=== PATIENT | female | born 2000 | race Two or more races ===

== ENCOUNTER 2019-05-23 06:51 | Inpatient (IN) | payer BC ==
[~2019-05-23] VITALS: Ht 157.5 cm; Wt 58.1 kg
[~2019-05-23 06:51] MED LIST: METO10TA PO; PANT40TA77 PO; PROC10VI PO
[2019-05-23 09:00] VITALS: BP 115/64
[2019-05-23] MEDS ORDERED: ACETAMINOPHEN 325 MG TABLET. PO PRN ×2 (09:15)
[2019-05-23] MEDS ORDERED: FAMOTIDINE 20 MG/2 ML VIAL IVP PRN (09:30)
[2019-05-23] MEDS: ONDANSETRON PF 4 MG/2 ML VIAL. IVP PRN ×3 (09:40→19:09)
[2019-05-23] MEDS: IV DEXTROSE 5%-LACT RINGERS 1,000 ML IV SCH ×2 (09:40→18:32)
[2019-05-23] MEDS: diphenhydrAMINE HCL 25 MG CAPSULE PO PRN (15:17)
[2019-05-23 18:25] VITALS: BP 146/90
[2019-05-23] MEDS: ZOLPIDEM 5 MG TABLET. PO PRN (19:30)
--- NOTE | 2019-05-23 19:30 | NUR ---
1929- Dr. Torres called and asked about new medication to help pt. sleep. Orders received to give Vistaril 50 mg IM every 4 hours. Medication given to pt. per order at 1941. 2004- Pt.'s family arrived in the room. 2014- pt. requested to get in the shower. Shower set up and IV wrapped and disconnected so pt. could get in the shower. 2029- Pt. family called this nurse into the room and stated they were not happy with the dosage of medications she was receiving, including the Zofran, and asked this nurse if this nurse could call the doctor to get new orders. 2034- This nurse called Dr. Arreguin, and stated pt.'s and family's concerns. Orders received for a Phenergan suppository, but to leave the Zofran order, as ordered. 2039- This nurse talked to the family about the plan for the supp. Pt.'s family stated that they were going to take her to a different hospital, as they were unhappy with her care, but that they wanted her to receive the phenergan. This nurse apologized, got the medication from pharmacy, and reported this to the charge nurse. Charge nurse stated that she would page the nursing material handling crew supervisor. 2049- This nurse came in with the suppository to give the patient. Patient's family began to get agitated, and asked why this wasn't going through the IV. This nurse stated that this was not standard of practice. Pt. family members were then agitated and looked up the medication on their cell phone and asked why this nurse was "lying to them" and stated that they would get "sales exec involved if they needed to." Pt. family member asked, if the patient population being "mostly black was the reason they weren't receiving good care." This nurse then asked if the family wanted this nurse to get the charge nurse, suppository not given at this time. 2099- Charge nurse, nursing material handling crew supervisor, and a security systems manager then entered room to talk to patient and family, and were in there approximately 10 minutes. 2109- Charge nurse came out to nursing desk and told this nurse to restart pt's IV fluids, this nurse went right into pt's room and restarted IV fluids per order. Pt. family member stated that they were recording us with her phone. Pt. IV fluids restarted. Family still agitated. This nurse assessed needs and went out to the nurses desk. 2114- Charge nurse then told this nurse to call Dr. Dean, as she had been told by the pt. that she had already established care with Dr. Dean this , and ask him if he would take over care of this patient. Dr. Dean called shortly after stated he would take over care of the patient. Dr. Arreguin then called right after talking to Dr. Dean, and stated she was fine with us transferring care to Dr. Dean. 2119- Dr. Dean called and new orders received. 2129- This nurse went into room with charge nurse. Pt. stated "just let her take care of me" Plan and new orders discussed with pt. and family. Pt. verbalized that she was fine with the new plan of care and that she wanted to stay. This nurse apologized to pt. and pt's family again at this time. Pt. family more calm and cooperative when this nurse left the room. N/V meds then given per order, see eMAR.
[2019-05-23] MEDS: hydrOXYzine IM 50 MG/ML VIAL IM PRN (19:42)
[2019-05-23] MEDS ORDERED: PROMETHAZINE 12.5 MG TABLET. PO PRN (20:30)
[2019-05-23] MEDS ORDERED: METOCLOPRAMIDE HCL 10 MG/2 ML VIAL. IVP PRN (21:15)
[2019-05-23] MEDS ORDERED: ONDANSETRON PF 4 MG/2 ML VIAL. IVP PRN (21:15)
[2019-05-23] MEDS: PROMETHAZINE 25 MG SUPP.RECT. PR PRN (21:28)
[2019-05-23] MEDS: IV RINGERS,LACTATED 1000ML 1,000 ML IV SCH (21:36)
[2019-05-23 22:05] VITALS: BP 124/70
[2019-05-23] MEDS: FAMOTIDINE 20 MG/2 ML VIAL IVP SCH (22:30)
[2019-05-24 01:37] VITALS: BP 108/52
[2019-05-24] MEDS: IV RINGERS,LACTATED 1000ML 1,000 ML IV SCH ×2 (02:52→21:37)
[2019-05-24] MEDS ORDERED: ONDANSETRON PF 4 MG/2 ML VIAL. ONE (03:05)
[2019-05-24] MEDS: ONDANSETRON PF 4 MG/2 ML VIAL. IVP SCH ×4 (03:07→22:22)
--- NOTE | 2019-05-24 03:15 | NUR ---
Pt. Zofran given at 0307 per order. Pt. asked if she could have IV Benadryl. This nurse left room to call Dr. Dean. Orders received for 50 mg Benadryl IVP. 0510- Pt. still complaining of lots of nausea and vomiting. Pt. asked if there was anything else this nurse could give for sleep. This nurse stated that she would talk to Dr. Dean. Reglan given per order. 0520- Dr. Dean called and orders received to give Phenergan suppository early per order.
[2019-05-24] MEDS: diphenhydrAMINE 50 MG/ML VIAL IVP PRN ×3 (03:24→16:30)
[2019-05-24] MEDS: METOCLOPRAMIDE HCL 10 MG/2 ML VIAL. IVP SCH ×3 (05:11→21:41)
[2019-05-24] MEDS: PROMETHAZINE 25 MG SUPP.RECT. PR PRN ×2 (05:32→16:00)
[2019-05-24 05:40] VITALS: BP 135/74
[2019-05-24 07:42] LABS: BASO % 0 % (0-3); EOS % 0 % (0-3); HEMATOCRIT 32.3 % (36.0-47.0); HEMOGLOBIN 10.8 g/dL (12.0-15.5); LYMPH % 8 % (24-48); MEAN CORPUSCULAR HEMOGLOBIN 30 pg (25-35); MEAN CORPUSCULAR HGB CONC 34 g/dL (31-37); MEAN CORPUSCULAR VOLUME 90 fL (79-100); MONO # 0.5 x10^3/uL (0.0-1.1); MONO % 4 % (0-9); NEUT # 11.4 x10^3/uL (1.8-7.7); NEUT % 88 % (31-73); PLATELET COUNT 213 x10^3/uL (140-400); RED BLOOD COUNT 3.59 x10^6/uL (3.50-5.40); RED CELL DISTRIBUTION WIDTH 14.7 % (11.5-14.5)
[2019-05-24 07:56] LABS: ALBUMIN 3.1 g/dL (3.4-5.0); ALBUMIN/GLOBULIN RATIO 0.9 (1.0-1.7); CALCIUM 8.7 mg/dL (8.5-10.1); CREATININE 0.6 mg/dL (0.6-1.0); GFR 126.2; POTASSIUM 3.1 mmol/L (3.5-5.1); TOTAL BILIRUBIN 0.3 mg/dL (0.2-1.0); TOTAL PROTEIN 6.7 g/dL (6.4-8.2)
[2019-05-24] MEDS: ACETAMINOPHEN 650 MG SUPP.RECT. PR PRN ×2 (08:30→18:30)
[2019-05-24] MEDS: FAMOTIDINE 20 MG/2 ML VIAL IVP SCH ×2 (08:30→21:40)
[2019-05-24] MEDS ORDERED: MULTIVIT INFUSN,ADULT 4,VIT K 10 ML, THIAMINE INJ 100 MG, FOLIC ACID INJ 1 MG in IV NOR... IV ONE (09:30)
[2019-05-24] MEDS: IV DEXTROSE 5%-LACT RINGERS 1,000 ML IV SCH ×2 (09:30→17:30)
--- NOTE | 2019-05-24 10:01 | PDOC1 ---
OB - History Hx of Present Care: Limited Care Ultrasounds: Other (dating sono was normal) Obstetrical Complications: Hyperemesis Medical Complications: None Past Family/Social History * Past Medical, Surgical, Family and Obstetric Histories reviewed from chart. Rubella: Immune RPR/VDRL: Negative GBS Status: Unknown HBsAG: Negative OB - Chief Complaint & HPI Date of Admission: Date of Admission: May 23, 2019 at 08:43 Chief Complaint/History : 2 Para: 1 EGA: 12 Reason for admission: other (hyperemesis and hypokalemia) Admission Nurse Assessment Rev: Yes OB - Admission Exam Physical Exam Vitals: VS - Last 72 Hours, by Label Date Time Temp Pulse Resp B/P (MAP) Pulse Ox O2 Delivery O2 Flow Rate FiO2 05/24/19 05:40 99.3 90 16 135/74 (94) 100 Room Air 99.3 05/24/19 01:37 99.5 74 20 108/52 (70) 99 Room Air 99.5 05/23/19 22:05 99.2 73 20 124/70 (88) 99 Room Air 99.2 05/23/19 18:25 98.1 97 20 146/90 (108) 100 Room Air 98.1 05/23/19 09:00 98.1 94 16 115/64 (81) 100 Room Air 98.1 HEENT: Other (dry mucous membranes) Heart: Regular Rate Lungs: Clear Abdomen: Soft, Tender Extremities: No tenderness or swelling Reflexes: Normal Cervical Dilatation: None Effacement: 0% Station: Ballotable Membranes: Intact Contractions on Admission: None Text A: 12 wks IUP Hypokalemia Hyperemesis P: Observation for IV hydration and antiemetics. Pt. was originally admitted under Dr. Torres. Care was then transferred to [place] Nutrition consult. LOPEZ LUBIN Jr, MD May 24, 2019 10:01
[2019-05-24 10:25] LABS: % BANDS 5 % (0-9); % LYMPHS 7 % (24-48)
[2019-05-24 10:26] LABS: % MONOS 3 % (0-10); % SEGS 85 % (35-66); PLT ESTIMATE ADEQUATE (ADEQUATE)
[2019-05-24 10:27] LABS: OVALOCYTES PRESENT
[2019-05-24 11:20] VITALS: BP 138/88
[2019-05-24] MEDS ORDERED: MORPHINE SULFATE 4 MG/ML VIAL. IV ONE (13:00)
[2019-05-24 16:00] VITALS: BP 140/93
[2019-05-24] MEDS ORDERED: MORPHINE SULFATE 10 MG/ML VIAL. IV ONE (19:30)
[2019-05-24 21:45] VITALS: BP 105/61
[2019-05-25] MEDS: IV DEXTROSE 5%-LACT RINGERS 1,000 ML IV SCH (01:30)
[2019-05-25] MEDS: IV RINGERS,LACTATED 1000ML 1,000 ML IV SCH ×2 (03:17→20:19)
[2019-05-25] MEDS: PROMETHAZINE 25 MG SUPP.RECT. PR PRN ×2 (03:35→20:19)
[2019-05-25] MEDS: ONDANSETRON PF 4 MG/2 ML VIAL. IVP SCH ×4 (03:35→23:52)
[2019-05-25 03:54] VITALS: BP 151/86
[2019-05-25] MEDS: METOCLOPRAMIDE HCL 10 MG/2 ML VIAL. IVP SCH ×3 (05:25→21:36)
[2019-05-25 05:54] LABS: BASO % 0 % (0-3); EOS % 0 % (0-3); HEMATOCRIT 31.4 % (36.0-47.0); HEMOGLOBIN 10.6 g/dL (12.0-15.5); LYMPH # 1.4 x10^3/uL (1.0-4.8); LYMPH % 14 % (24-48); MEAN CORPUSCULAR HEMOGLOBIN 30 pg (25-35); MEAN CORPUSCULAR HGB CONC 34 g/dL (31-37); MEAN CORPUSCULAR VOLUME 89 fL (79-100); MONO # 0.7 x10^3/uL (0.0-1.1); MONO % 6 % (0-9); NEUT # 8.2 x10^3/uL (1.8-7.7); NEUT % 80 % (31-73); PLATELET COUNT 207 x10^3/uL (140-400); RED BLOOD COUNT 3.52 x10^6/uL (3.50-5.40); RED CELL DISTRIBUTION WIDTH 14.9 % (11.5-14.5); WHITE BLOOD COUNT 10.3 x10^3/uL (4.0-11.0)
[2019-05-25 06:18] LABS: ALBUMIN/GLOBULIN RATIO 0.9 (1.0-1.7); CALCIUM 8.4 mg/dL (8.5-10.1); CREATININE 0.5 mg/dL (0.6-1.0); GFR 155.7; POTASSIUM 3.4 mmol/L (3.5-5.1); TOTAL BILIRUBIN 0.4 mg/dL (0.2-1.0); TOTAL PROTEIN 6.3 g/dL (6.4-8.2)
[2019-05-25] MEDS: diphenhydrAMINE 50 MG/ML VIAL IVP PRN (06:26)
[2019-05-25] MEDS ORDERED: CALCIUM CARBONATE 500 MG TAB.CHEW PO PRN (06:30)
[2019-05-25] MEDS: FAMOTIDINE 20 MG/2 ML VIAL IVP SCH ×2 (09:29→21:35)
[2019-05-25 09:58] VITALS: BP 138/82
[2019-05-25] MEDS: hydrOXYzine IM 50 MG/ML VIAL IM PRN ×2 (11:26→21:35)
--- NOTE | 2019-05-25 13:34 | PDOC ---
OB Progress Note Date of Service 05/25/19 Time of Evaluation 1330 Notes Pt. tolerating small sips liquids. Pain improved. Lab Laboratory Tests Test 05/24/19 06:45 05/25/19 05:30 White Blood Count 13.0 x10^3/uL (4.0-11.0) 10.3 x10^3/uL (4.0-11.0) Red Blood Count 3.59 x10^6/uL (3.50-5.40) 3.52 x10^6/uL (3.50-5.40) Hemoglobin 10.8 g/dL (12.0-15.5) 10.6 g/dL (12.0-15.5) Hematocrit 32.3 % (36.0-47.0) 31.4 % (36.0-47.0) Mean Corpuscular Volume 90 fL (79-100) 89 fL (79-100) Mean Corpuscular Hemoglobin 30 pg (25-35) 30 pg (25-35) Mean Corpuscular Hemoglobin Concent 34 g/dL (31-37) 34 g/dL (31-37) Red Cell Distribution Width 14.7 % (11.5-14.5) 14.9 % (11.5-14.5) Platelet Count 213 x10^3/uL (140-400) 207 x10^3/uL (140-400) Neutrophils (%) (Auto) 88 % (31-73) 80 % (31-73) Lymphocytes (%) (Auto) 8 % (24-48) 14 % (24-48) Monocytes (%) (Auto) 4 % (0-9) 6 % (0-9) Eosinophils (%) (Auto) 0 % (0-3) 0 % (0-3) Basophils (%) (Auto) 0 % (0-3) 0 % (0-3) Neutrophils # (Auto) 11.4 x10^3/uL (1.8-7.7) 8.2 x10^3/uL (1.8-7.7) Lymphocytes # (Auto) 1.0 x10^3/uL (1.0-4.8) 1.4 x10^3/uL (1.0-4.8) Monocytes # (Auto) 0.5 x10^3/uL (0.0-1.1) 0.7 x10^3/uL (0.0-1.1) Eosinophils # (Auto) 0.0 x10^3/uL (0.0-0.7) 0.0 x10^3/uL (0.0-0.7) Basophils # (Auto) 0.0 x10^3/uL (0.0-0.2) 0.0 x10^3/uL (0.0-0.2) Segmented Neutrophils % 85 % (35-66) Band Neutrophils % 5 % (0-9) Lymphocytes % 7 % (24-48) Monocytes % 3 % (0-10) Platelet Estimate Adequate (ADEQUATE) Large Platelets Present Ovalocytes Present Sodium Level 142 mmol/L (136-145) 138 mmol/L (136-145) Potassium Level 3.1 mmol/L (3.5-5.1) 3.4 mmol/L (3.5-5.1) Chloride Level 106 mmol/L (98-107) 103 mmol/L (98-107) Carbon Dioxide Level 21 mmol/L (21-32) 22 mmol/L (21-32) Anion Gap 15 (6-14) 13 (6-14) Blood Urea Nitrogen 4 mg/dL (7-20) 3 mg/dL (7-20) Creatinine 0.6 mg/dL (0.6-1.0) 0.5 mg/dL (0.6-1.0) Estimated GFR (Cockcroft-Gault) 126.2 155.7 BUN/Creatinine Ratio 7 (6-20) 6 (6-20) Glucose Level 112 mg/dL (70-99) 94 mg/dL (70-99) Calcium Level 8.7 mg/dL (8.5-10.1) 8.4 mg/dL (8.5-10.1) Total Bilirubin 0.3 mg/dL (0.2-1.0) 0.4 mg/dL (0.2-1.0) Aspartate Amino Transf (AST/SGOT) 15 U/L (15-37) 14 U/L (15-37) Alanine Aminotransferase (ALT/SGPT) 14 U/L (14-59) 14 U/L (14-59) Alkaline Phosphatase 37 U/L (46-116) 36 U/L (46-116) Total Protein 6.7 g/dL (6.4-8.2) 6.3 g/dL (6.4-8.2) Albumin 3.1 g/dL (3.4-5.0) 3.0 g/dL (3.4-5.0) Albumin/Globulin Ratio 0.9 (1.0-1.7) 0.9 (1.0-1.7) Amylase Level 67 U/L (25-115) Lipase 138 U/L (73-393) Laboratory Tests Test 05/25/19 05:30 White Blood Count 10.3 x10^3/uL (4.0-11.0) Red Blood Count 3.52 x10^6/uL (3.50-5.40) Hemoglobin 10.6 g/dL (12.0-15.5) Hematocrit 31.4 % (36.0-47.0) Mean Corpuscular Volume 89 fL (79-100) Mean Corpuscular Hemoglobin 30 pg (25-35) Mean Corpuscular Hemoglobin Concent 34 g/dL (31-37) Red Cell Distribution Width 14.9 % (11.5-14.5) Platelet Count 207 x10^3/uL (140-400) Neutrophils (%) (Auto) 80 % (31-73) Lymphocytes (%) (Auto) 14 % (24-48) Monocytes (%) (Auto) 6 % (0-9) Eosinophils (%) (Auto) 0 % (0-3) Basophils (%) (Auto) 0 % (0-3) Neutrophils # (Auto) 8.2 x10^3/uL (1.8-7.7) Lymphocytes # (Auto) 1.4 x10^3/uL (1.0-4.8) Monocytes # (Auto) 0.7 x10^3/uL (0.0-1.1) Eosinophils # (Auto) 0.0 x10^3/uL (0.0-0.7) Basophils # (Auto) 0.0 x10^3/uL (0.0-0.2) Sodium Level 138 mmol/L (136-145) Potassium Level 3.4 mmol/L (3.5-5.1) Chloride Level 103 mmol/L (98-107) Carbon Dioxide Level 22 mmol/L (21-32) Anion Gap 13 (6-14) Blood Urea Nitrogen 3 mg/dL (7-20) Creatinine 0.5 mg/dL (0.6-1.0) Estimated GFR (Cockcroft-Gault) 155.7 BUN/Creatinine Ratio 6 (6-20) Glucose Level 94 mg/dL (70-99) Calcium Level 8.4 mg/dL (8.5-10.1) Total Bilirubin 0.4 mg/dL (0.2-1.0) Aspartate Amino Transf (AST/SGOT) 14 U/L (15-37) Alanine Aminotransferase (ALT/SGPT) 14 U/L (14-59) Alkaline Phosphatase 36 U/L (46-116) Total Protein 6.3 g/dL (6.4-8.2) Albumin 3.0 g/dL (3.4-5.0) Albumin/Globulin Ratio 0.9 (1.0-1.7) Amylase Level 67 U/L (25-115) Lipase 138 U/L (73-393) Medications Current Medications Ondansetron HCl (Zofran) 4 mg PRN Q4HRS PRN IVP NAUSEA/VOMITING Last admin istered on 05/23/19at 19:09; Start 05/23/19 at 09:15; Stop 05/23/19 at 22:25; Status DC Acetaminophen (Tylenol) 325 mg PRN Q4HRS PRN PO MILD PAIN / TEMP; Start 05/23/19 at 09:15 Acetaminophen (Tylenol) 650 mg PRN Q4HRS PRN PO MILD PAIN 1-3 Last administered on 05/23/19at 09:40; Start 05/23/19 at 09:15 Dextrose/Lactated Ringer's 1,000 ml @ 125 mls/hr Q8H IV Last administered on 05/23/19at 18:32; Start 05/23/19 at 09:30 Famotidine (Pepcid Vial) 20 mg PRN BID PRN IVP heartburn Last administered on 05/23/19at 19:09; Start 05/23/19 at 09:30; Stop 05/23/19 at 22:25; Status DC Diphenhydramine HCl (Benadryl) 50 mg PRN Q6HRS PRN PO ITCHING Last administered on 05/23/19 15:17; Start 05/23/19 at 15:00 Zolpidem Tartrate (Ambien) 5 mg PRN QHS PRN PO INSOMNIA; Start 05/23/19 at 19:15 Hydroxyzine HCl (Vistaril Im) 50 mg PRN Q4HRS PRN IM ITCHING Last administered on 05/25/19 11:26; Start 05/23/19 at 19:45 Promethazine HCl (Phenergan) 25 mg BID PRN PO NAUSEA/VOMITING; Start 05/23/19 at 20:30; Status UNV Promethazine HCl (Phenergan Supp) 25 mg PRN BID PRN MS NAUSEA/VOMITING Last administered on 05/25/19 03:35; Start 05/23/19 at 20:30 Ringer's Solution 1,000 ml @ 175 mls/hr Q5H43M IV Last administered on 05/25/19 03:17; Start 05/23/19 at 21:15 Ondansetron HCl (Zofran) 8 mg PRN Q6HRS PRN IVP NAUSEA/VOMITING 1ST CHOICE Last administered on 05/23/19 21:28; Start 05/23/19 at 21:15; Stop 05/23/19 at 22:25; Status DC Metoclopramide HCl (Reglan Vial) 10 mg PRN Q8HRS PRN IVP NAUSEA/VOMITING 2ND CHOICE Last administered on 05/23/19at 21:30; Start 05/23/19 at 21:15; Stop 05/23/19 at 22:25; Status DC Famotidine (Pepcid Vial) 20 mg BID IVP Last administered on 05/25/19 09:29; Start 05/23/19 at 22:30 Metoclopramide HCl (Reglan Vial) 10 mg Q8HRS IVP Last administered on 05/25/19 05:25; Start 05/24/19 at 06:00 Ondansetron HCl (Zofran) 8 mg Q6HRS IVP Last administered on 05/25/19 09:29; Start 05/24/19 at 06:00 Ondansetron HCl (Zofran) 4 mg STK-MED ONCE .ROUTE ; Start 05/24/19 at 03:05; S top 05/24/19 at 03:05; Status DC Diphenhydramine HCl (Benadryl) 50 mg PRN Q6HRS PRN IVP ITCHING Last administered on 05/25/19at 06:26; Start 05/24/19 at 03:15 Acetaminophen (Tylenol Supp) 650 mg PRN Q6HRS PRN MS MILD PAIN / TEMP Last administered on 05/24/19at 18:30; Start 05/24/19 at 08:00 Multivitamins 10 ml/Thiamine HCl 100 mg/Folic Acid 1 mg/Sodium Chloride 1,011.2 ml @ 1,000.088 mls/hr 1X ONCE IV Last administered on 05/24/19at 09:30; Start 05/24/19 at 09:30; Stop 05/24/19 at 10:30; Status DC Morphine Sulfate (Morphine Sulfate) 5 mg 1X ONCE IV Last administered on 05/24/19at 13:08; Start 05/24/19 at 13:00; Stop 05/24/19 at 13:04; Status DC Morphine Sulfate (Morphine Sulfate) 5 mg 1X ONCE IV Last administered on 05/24/19at 19:48; Start 05/24/19 at 19:30; Stop 05/24/19 at 19:37; Status DC Calcium Carbonate/ Glycine (Tums) 1,000 mg PRN AFTMEALHC PRN PO INDIGESTION; Start 05/25/19 at 06:30 Active Scripts Active Prochlorperazine Edisylate 10 Mg/2 Ml Vial 10 Mg PO PRN Q12HRS PRN Pantoprazole Sodium 40 Mg Tablet.dr 40 Mg PO DAILYAC Metoclopramide Hcl 10 Mg Tablet 10 Mg PO Q8HRS Exam Abd: soft, mild tenderness diffuse; no rebound tenderness Assessment 12 wks IUP Hyperemesis Hypokalemia Plan of Care: Continue current Tx, LOPEZ Barger Jr, MD May 25, 2019 13:34
[2019-05-25 17:21] VITALS: BP 143/88
[2019-05-25 19:30] VITALS: BP 145/83
[2019-05-26] MEDS: IV RINGERS,LACTATED 1000ML 1,000 ML IV SCH ×4 (02:16→22:18)
[2019-05-26] MEDS: ONDANSETRON PF 4 MG/2 ML VIAL. IVP SCH ×4 (05:42→23:59)
[2019-05-26] MEDS: METOCLOPRAMIDE HCL 10 MG/2 ML VIAL. IVP SCH ×3 (05:42→22:11)
[2019-05-26 05:48] VITALS: BP 153/94
[2019-05-26] MEDS: PROMETHAZINE 25 MG SUPP.RECT. PR PRN (06:16)
[2019-05-26] MEDS: FAMOTIDINE 20 MG/2 ML VIAL IVP SCH ×2 (10:19→21:03)
[2019-05-26] MEDS: ACETAMINOPHEN 650 MG SUPP.RECT. PR PRN (11:32)
[2019-05-26 16:20] VITALS: BP 138/77
[2019-05-26] MEDS: diphenhydrAMINE 50 MG/ML VIAL IVP PRN (20:07)
[2019-05-26 20:15] VITALS: BP 142/87
[2019-05-27] VITALS (7 sets, daily range): BP systolic 98–147; BP diastolic 53–98
[2019-05-27] MEDS: diphenhydrAMINE 50 MG/ML VIAL IVP PRN (01:56)
[2019-05-27] MEDS: PROMETHAZINE 25 MG SUPP.RECT. PR PRN (02:24)
[2019-05-27] MEDS: hydrOXYzine IM 50 MG/ML VIAL IM PRN (04:49)
[2019-05-27] MEDS: METOCLOPRAMIDE HCL 10 MG/2 ML VIAL. IVP SCH (05:42)
[2019-05-27] MEDS: IV DEXTROSE 5%-LACT RINGERS 1,000 ML IV SCH (05:43)
[2019-05-27] MEDS: ONDANSETRON PF 4 MG/2 ML VIAL. IVP SCH (06:46)
[2019-05-27] MEDS ORDERED: chlorproMAZINE 25 MG in IV DEXTROSE 5% 50 ML IV ONE ×2 (09:00→22:30)
[2019-05-27] MEDS: ONDANSETRON IV SCH ×3 (09:29→22:00)
[2019-05-27] MEDS: RINGERS LACTATED IV SCH ×3 (09:29→22:00)
[2019-05-27] MEDS: FAMOTIDINE 20 MG/2 ML VIAL IVP SCH ×2 (09:30→21:11)
[2019-05-27] MEDS: ONDANSETRON ODT 4 MG TAB.RAPDIS. PO PRN (18:17)
[2019-05-27] MEDS: ZOLPIDEM 5 MG TABLET. PO PRN (19:06)
[2019-05-27] MEDS: chlorproMAZINE 25 MG TABLET PO PRN (19:39)
[2019-05-27] MEDS: diphenhydrAMINE HCL 25 MG CAPSULE PO PRN (21:28)
[2019-05-28] MEDS: ONDANSETRON IV SCH ×4 (03:59→23:13)
[2019-05-28] MEDS: RINGERS LACTATED IV SCH ×4 (03:59→23:13)
[2019-05-28 06:40] VITALS: BP 118/65
[2019-05-28] MEDS: ONDANSETRON ODT 4 MG TAB.RAPDIS. PO PRN (07:00)
[2019-05-28] MEDS: FAMOTIDINE 20 MG/2 ML VIAL IVP SCH ×2 (09:30→20:48)
[2019-05-28] MEDS: chlorproMAZINE 25 MG TABLET PO PRN (09:32)
[2019-05-28 11:14] VITALS: BP 120/69
[2019-05-28] MEDS: ONDANSETRON PF 4 MG/2 ML VIAL. IVP PRN (12:17)
--- NOTE | 2019-05-28 13:05 | PDOC ---
OB Progress Note Date of Service 05/28/19 Time of Evaluation 1300 Notes Pt. with N/V with emesis despite antiemetic regimen. Will discuss with [facility] about PIC line for malnutrition. Medications Current Medications Ondansetron HCl (Zofran) 4 mg PRN Q4HRS PRN IVP NAUSEA/VOMITING Last administered on 05/23/19at 19:09; Start 05/23/19 at 09:15; Stop 05/23/19 at 22:25; Status DC Acetaminophen (Tylenol) 325 mg PRN Q4HRS PRN PO MILD PAIN / TEMP; Start 05/23/19 at 09:15 Acetaminophen (Tylenol) 650 mg PRN Q4HRS PRN PO MODERATE PAIN Last administered on 05/23/19at 09:40; Start 05/23/19 at 09:15 Dextrose/Lactated Ringer's 1,000 ml @ 125 mls/hr Q8H IV Last administered on 05/27/19at 05:43; Start 05/23/19 at 09:30; Stop 05/27/19 at 07:30; Status DC Famotidine (Pepcid Vial) 20 mg PRN BID PRN IVP heartburn Last administered on 05/23/19at 19:09; Start 05/23/19 at 09:30; Stop 05/23/19 at 22:25; Status DC Diphenhydramine HCl (Benadryl) 50 mg PRN Q6HRS PRN PO ITCHING Last administered on 05/23/19at 15:17; Start 05/23/19 at 15:00 Zolpidem Tartrate (Ambien) 5 mg PRN QHS PRN PO INSOMNIA; Start 05/23/19 at 19:15 Hydroxyzine HCl (Vistaril Im) 50 mg PRN Q4HRS PRN IM ITCHING Last administered on 05/27/19at 04:49; Start 05/23/19 at 19:45; Stop 05/27/19 at 08:27; Status DC Promethazine HCl (Phenergan) 25 mg BID PRN PO NAUSEA/VOMITING; Start 05/23/19 at 20:30; Status UNV Promethazine HCl (Phenergan Supp) 25 mg PRN BID PRN OR NAUSEA/VOMITING Last administered on 05/27/19at 02:24; Start 05/23/19 at 20:30; Stop 05/27/19 at 08:27; Status DC Ringer's Solution 1,000 ml @ 175 mls/hr Q5H43M IV Last administered on 05/26/19 22:18; Start 05/23/19 at 21:15; Stop 05/27/19 at 09:13; Status DC Ondansetron HCl (Zofran) 8 mg PRN Q6HRS PRN IVP NAUSEA/VOMITING 1ST CHOICE Last administered on 05/23/19at 21:28; Start 05/23/19 at 21:15; Stop 05/23/19 at 22:25; Status DC Metoclopramide HCl (Reglan Vial) 10 mg PRN Q8HRS PRN IVP NAUSEA/VOMITING 2ND CHOICE Last administered on 05/23/19at 21:30; Start 05/23/19 at 21:15; Stop 05/23/19 at 22:25; Status DC Famotidine (Pepcid Vial) 20 mg BID IVP Last administered on 05/27/19 21:11; Start 05/23/19 at 22:30 Metoclopramide HCl (Reglan Vial) 10 mg Q8HRS IVP Last administered on 05/27/19 05:42; Start 05/24/19 at 06:00; Stop 05/27/19 at 08:27; Status DC Ondansetron HCl (Zofran) 8 mg Q6HRS IVP Last administered on 05/27/19 06:46; Start 05/24/19 at 06:00; Stop 05/27/19 at 08:27; Status DC Ondansetron HCl (Zofran) 4 mg STK-MED ONCE .ROUTE ; Start 05/24/19 at 03:05; Stop 05/24/19 at 03:05; Status DC Diphenhydramine HCl (Benadryl) 50 mg PRN Q6HRS PRN IVP ITCHING 1ST CHOICE Last administered on 05/27/19at 01:56; Start 05/24/19 at 03:15; Stop 05/27/19 at 08:27; Status DC Acetaminophen (Tylenol Supp) 650 mg PRN Q6HRS PRN OR MILD PAIN / TEMP Last administered on 05/26/19at 11:32; Start 05/24/19 at 08:00 Multivitamins 10 ml/Thiamine HCl 100 mg/Folic Acid 1 mg/Sodium Chloride 1,011.2 ml @ 1,000.088 mls/hr 1X ONCE IV Last administered on 05/24/19at 09:30; Start 05/24/19 at 09:30; Stop 05/24/19 at 10:30; Status DC Morphine Sulfate (Morphine Sulfate) 5 mg 1X ONCE IV Last administered on 05/24/19at 13:08; Start 05/24/19 at 13:00; Stop 05/24/19 at 13:04; Status DC Morphine Sulfate (Morphine Sulfate) 5 mg 1X ONCE IV Last administered on 05/24/19at 19:48; Start 05/24/19 at 19:30; Stop 05/24/19 at 19:37; Status DC Calcium Carbonate/ Glycine (Tums) 1,000 mg PRN AFTMEALHC PRN PO INDIGESTION; Start 05/25/19 at 06:30 Ondansetron HCl (Zofran Odt) 4 mg PRN Q6HRS PRN PO NAUSEA/VOMITING Last administered on 05/28/19at 07:00; Start 05/27/19 at 08:30 Chlorpromazine HCl (Thorazine) 25 mg 1X ONCE IV ; Start 05/27/19 at 09:00; Stop 05/27/19 at 09:01; Status Cancel Chlorpromazine HCl 25 mg/Dextrose 51 ml @ 100 mls/hr 1X ONCE IV Last administered on 05/27/19at 08:56; Start 05/27/19 at 09:00; Stop 05/27/19 at 09:30; Status DC Ondansetron HCl 8 mg/Ringer's Solution 1,004 ml @ 175 mls/hr Q5H45M IV Last administered on 05/28/19at 03:59; Start 05/27/19 at 09:15 Chlorpromazine HCl (Thorazine) 10 mg PRN Q6HRS PRN PO NAUSEA, VOMITING; Start 05/27/19 at 16:00 Chlorpromazine HCl (Thorazine) 25 mg PRN Q6HRS PRN PO NAUSEA, VOMITING Last administered on 05/28/19at 09:32; Start 05/27/19 at 16:00 Chlorpromazine HCl 25 mg/Dextrose 51 ml @ 100 mls/hr 1X ONCE IV Last administered on 05/27/19at 22:08; Start 05/27/19 at 22:30; Stop 05/27/19 at 23:00; Status DC Ondansetron HCl (Zofran) 4 mg PRN Q6HRS PRN IVP NAUSEA/VOMITING 1ST CHOICE Last administered on 05/28/19at 12:17; Start 05/28/19 at 01:00 Active Scripts Active Prochlorperazine Edisylate 10 Mg/2 Ml Vial 10 Mg PO PRN Q12HRS PRN Pantoprazole Sodium 40 Mg Tablet.dr 40 Mg PO DAILYAC Metoclopramide Hcl 10 Mg Tablet 10 Mg PO Q8HRS Exam Abd: soft mild tenderness Assessment 12 wks IUP Hyperemesis Gravidarum Malnutrition Plan of Care: Continue current Tx, Mgmt (Continue current management. F/u on Zofran pump with insurance. Inquire about PIC line from [facility].) LOPEZ LUBIN Jr, MD May 28, 2019 13:05
[2019-05-28] MEDS: chlorproMAZINE 25 MG in IV DEXTROSE 5% 50 ML IV PRN ×2 (13:30→19:18)
[2019-05-28 15:20] VITALS: BP 117/67
[2019-05-28 19:30] VITALS: BP 131/77
[2019-05-29] VITALS: BP 123/68
--- NOTE | 2019-05-29 | NUR ---
0000 Requesting chicken broth and crackers. Ambulating in halls. 0030 No complaints of N/V.
[2019-05-29] MEDS: chlorproMAZINE 25 MG in IV DEXTROSE 5% 50 ML IV PRN ×3 (01:13→20:16)
--- NOTE | 2019-05-29 04:00 | NUR ---
Up to shower. Able to shower independently. Returned to bed after shower.
[2019-05-29 11:20] VITALS: BP 125/66
[2019-05-29] MEDS: FAMOTIDINE 20 MG/2 ML VIAL IVP SCH ×3 (12:17→20:13)
--- NOTE | 2019-05-29 13:14 | PDOC ---
OB Progress Note Date of Service 05/29/19 Time of Evaluation 1315 Notes Pt. attempting sips of liquids last night and this am. She did have more emesis late morning. Will continue with current treatment. Medications Current Medications Ondansetron HCl (Zofran) 4 mg PRN Q4HRS PRN IVP NAUSEA/VOMITING Last administered on 05/23/19at 19:09; Start 05/23/19 at 09:15; Stop 05/23/19 at 22:25; Status DC Acetaminophen (Tylenol) 325 mg PRN Q4HRS PRN PO MILD PAIN / TEMP; Start 05/23/19 at 09:15 Acetaminophen (Tylenol) 650 mg PRN Q4HRS PRN PO MODERATE PAIN Last administered on 05/23/19at 09:40; Start 05/23/19 at 09:15 Dextrose/Lactated Ringer's 1,000 ml @ 125 mls/hr Q8H IV Last administered on 05/27/19at 05:43; Start 05/23/19 at 09:30; Stop 05/27/19 at 07:30; Status DC Famotidine (Pepcid Vial) 20 mg PRN BID PRN IVP heartburn Last administered on 05/23/19at 19:09; Start 05/23/19 at 09:30; Stop 05/23/19 at 22:25; Status DC Diphenhydramine HCl (Benadryl) 50 mg PRN Q6HRS PRN PO ITCHING Last administered on 05/23/19at 15:17; Start 05/23/19 at 15:00 Zolpidem Tartrate (Ambien) 5 mg PRN QHS PRN PO INSOMNIA; Start 05/23/19 at 19:15 Hydroxyzine HCl (Vistaril Im) 50 mg PRN Q4HRS PRN IM ITCHING Last administered on 05/27/19at 04:49; Start 05/23/19 at 19:45; Stop 05/27/19 at 08:27; Status DC Promethazine HCl (Phenergan) 25 mg BID PRN PO NAUSEA/VOMITING; Start 05/23/19 at 20:30; Status UNV Promethazine HCl (Phenergan Supp) 25 mg PRN BID PRN [place] NAUSEA/VOMITING Last administered on 05/27/19at 02:24; Start 05/23/19 at 20:30; Stop 05/27/19 at 08:27; Status DC Ringer's Solution 1,000 ml @ 175 mls/hr Q5H43M IV Last administered on 05/26/19at 22:18; Start 05/23/19 at 21:15; Stop 05/27/19 at 09:13; Status DC Ondansetron HCl (Zofran) 8 mg PRN Q6HRS PRN IVP NAUSEA/VOMITING 1ST CHOICE Last administered on 05/23/19at 21:28; Start 05/23/19 at 21:15; Stop 05/23/19 at 22:25; Status DC Metoclopramide HCl (Reglan Vial) 10 mg PRN Q8HRS PRN IVP NAUSEA/VOMITING 2ND CHOICE Last administered on 05/23/19at 21:30; Start 05/23/19 at 21:15; Stop 05/23/19 at 22:25; Status DC Famotidine (Pepcid Vial) 20 mg BID IVP Last administered on 05/29/19at 12:19; Start 05/23/19 at 22:30 Metoclopramide HCl (Reglan Vial) 10 mg Q8HRS IVP Last administered on 05/27/19at 05:42; Start 05/24/19 at 06:00; Stop 05/27/19 at 08:27; Status DC Ondansetron HCl (Zofran) 8 mg Q6HRS IVP Last administered on 05/27/19at 06:46; Start 05/24/19 at 06:00; Stop 05/27/19 at 08:27; Status DC Ondansetron HCl (Zofran) 4 mg STK-MED ONCE .ROUTE ; Start 05/24/19 at 03:05; Stop 05/24/19 at 03:05; Status DC Diphenhydramine HCl (Benadryl) 50 mg PRN Q6HRS PRN IVP ITCHING 1ST CHOICE Last administered on 05/27/19at 01:56; Start 05/24/19 at 03:15; Stop 05/27/19 at 08:27; Status DC Acetaminophen (Tylenol Supp) 650 mg PRN Q6HRS PRN [place] MILD PAIN / TEMP Last administered on 05/26/19at 11:32; Start 05/24/19 at 08:00 Multivitamins 10 ml/Thiamine HCl 100 mg/Folic Acid 1 mg/Sodium Chloride 1,011.2 ml @ 1,000.088 mls/hr 1X ONCE IV Last administered on 05/24/19at 09:30; Start 05/24/19 at 09:30; Stop 05/24/19 at 10:30; Status DC Morphine Sulfate (Morphine Sulfate) 5 mg 1X ONCE IV Last administered on 05/24/19at 13:08; Start 05/24/19 at 13:00; Stop 05/24/19 at 13:04; Status DC Morphine Sulfate (Morphine Sulfate) 5 mg 1X ONCE IV Last administered on 05/24/19at 19:48; Start 05/24/19 at 19:30; Stop 05/24/19 at 19:37; Status DC Calcium Carbonate/ Glycine (Tums) 1,000 mg PRN AFTMEALHC PRN PO INDIGESTION; Start 05/25/19 at 06:30 Ondansetron HCl (Zofran Odt) 4 mg PRN Q6HRS PRN PO NAUSEA/VOMITING, 1ST CHOICE PO Last administered on 05/28/19at 07:00; Start 05/27/19 at 08:30 Chlorpromazine HCl (Thorazine) 25 mg 1X ONCE IV ; Start 05/27/19 at 09:00; Stop 05/27/19 at 09:01; Status Cancel Chlorpromazine HCl 25 mg/Dextrose 51 ml @ 100 mls/hr 1X ONCE IV Last administered on 05/27/19at 08:56; Start 05/27/19 at 09:00; Stop 05/27/19 at 09:30; Status DC Ondansetron HCl 8 mg/Ringer's Solution 1,004 ml @ 175 mls/hr Q5H45M IV Last administered on 05/28/19at 19:45; Start 05/27/19 at 09:15 Chlorpromazine HCl (Thorazine) 10 mg PRN Q6HRS PRN PO NAUSEA, VOMITING, 2ND CHOICE P; Start 05/27/19 at 16:00 Chlorpromazine HCl (Thorazine) 25 mg PRN Q6HRS PRN PO NAUSEA/VOMITING, 3RD CHOICE PO Last administered on 05/28/19at 09:32; Start 05/27/19 at 16:00 Chlorpromazine HCl 25 mg/Dextrose 51 ml @ 100 mls/hr 1X ONCE IV Last administered on 05/27/19at 22:08; Start 05/27/19 at 22:30; Stop 05/27/19 at 23:00; Status DC Ondansetron HCl (Zofran) 4 mg PRN Q6HRS PRN IVP NAUSEA/VOMITING 1ST CHOICE Last administered on 05/28/19at 12:17; Start 05/28/19 at 01:00 Chlorpromazine HCl 25 mg/Dextrose 50 ml @ 100 mls/hr PRN Q6HRS PRN IV nausea/vomiting Last administered on 05/29/19at 07:00; Start 05/28/19 at 13:45 Active Scripts Active Prochlorperazine Edisylate 10 Mg/2 Ml Vial 10 Mg PO PRN Q12HRS PRN Pantoprazole Sodium 40 Mg Tablet.dr 40 Mg PO DAILYAC Metoclopramide Hcl 10 Mg Tablet 10 Mg PO Q8HRS Exam Abd: soft, mild tenderness Assessment 12 wks IUP Hyperemesis Malnutrition Plan of Care: Continue current Tx, Mgmt LOPEZ LUBIN Jr, MD May 29, 2019 13:14
[2019-05-29 14:55] VITALS: BP 132/64
[2019-05-29] MEDS: ONDANSETRON PF 4 MG/2 ML VIAL. IVP PRN (17:39)
[2019-05-29] MEDS: ONDANSETRON IV SCH (19:33)
[2019-05-29] MEDS: RINGERS LACTATED IV SCH (19:33)
[2019-05-29 20:10] VITALS: BP 134/85
[2019-05-30 00:55] VITALS: BP 132/75
[2019-05-30] MEDS: RINGERS LACTATED IV SCH ×3 (01:46→13:23)
[2019-05-30] MEDS: ONDANSETRON IV SCH ×3 (01:46→13:23)
[2019-05-30 04:41] LABS: BASO % 1 % (0-3); EOS # 0.1 x10^3/uL (0.0-0.7); EOS % 1 % (0-3); HEMATOCRIT 32.5 % (36.0-47.0); HEMOGLOBIN 11.3 g/dL (12.0-15.5); LYMPH # 1.9 x10^3/uL (1.0-4.8); LYMPH % 25 % (24-48); MEAN CORPUSCULAR HEMOGLOBIN 31 pg (25-35); MEAN CORPUSCULAR HGB CONC 35 g/dL (31-37); MEAN CORPUSCULAR VOLUME 88 fL (79-100); MONO # 0.6 x10^3/uL (0.0-1.1); MONO % 8 % (0-9); NEUT # 4.9 x10^3/uL (1.8-7.7); NEUT % 65 % (31-73); PLATELET COUNT 218 x10^3/uL (140-400); RED BLOOD COUNT 3.68 x10^6/uL (3.50-5.40); RED CELL DISTRIBUTION WIDTH 14.6 % (11.5-14.5); WHITE BLOOD COUNT 7.4 x10^3/uL (4.0-11.0)
[2019-05-30 05:04] LABS: CALCIUM 8.2 mg/dL (8.5-10.1); CREATININE 0.6 mg/dL (0.6-1.0); GFR 126.2
[2019-05-30 05:05] LABS: POTASSIUM 2.6 mmol/L (3.5-5.1)
[2019-05-30] MEDS: POTASSIUM CHLORIDE IV SCH ×2 (05:23→13:23)
[2019-05-30 05:55] VITALS: BP 115/64
--- NOTE | 2019-05-30 11:27 | NUR ---
pt refused picc line placement will go home oral meds
[2019-05-30] MEDS: ONDANSETRON ODT 4 MG TAB.RAPDIS. PO PRN (14:44)
[2019-05-30 15:06] VITALS: BP 118/63
[2019-05-30 16:23] LABS: ALBUMIN 2.5 g/dL (3.4-5.0); ALBUMIN/GLOBULIN RATIO 0.7 (1.0-1.7); CREATININE 0.5 mg/dL (0.6-1.0); GFR 155.7; TOTAL BILIRUBIN 0.1 mg/dL (0.2-1.0)
--- NOTE | 2019-05-30 18:31 | PDOC3 ---
OB DISCHARGE SUMMARY DATE OF ADMISSION: 05/23/19 DATE OF DISCHARGE: 05/30/19 REASON FOR ADMISSION: Other (Hyperemesis, Hypokalmeia, Malnutrition) INTRAPARTUM PROCEDURES: Others (IV hydration, electrolyte replacement, nutrition replacement) DISCHARGE DIAGNOSIS: Others (Same) DISCHARGE INFORMATION: Activity (ad susie), Diet (regular), Instructions (small meals and increase fluid intake) HOSPITAL COURSE First trimester provided IV fluids, electrolyte replacement and nutritional support until patient improved to regular diet. LOPEZ LUBIN Jr, MD May 30, 2019 18:31
[2019-05-30] MEDS ORDERED: PROM25SU33 RC (18:35)
[2019-05-30] MEDS ORDERED: ONDA4TAB12 PO (18:35)
--- NOTE | 2019-05-30 18:35 | DISCH ---
DISCHARGE INSTRUCTIONS Condition on Discharge Condition on Discharge: Stable Activity After Discharge Activity Instructions for Disc: Activity as tolerated Lifting Instructions after Dis: No heavy lifting Driving Instructions after Dis: Do not drive today Diet after Discharge Diet after Discharge: Regular Contacting the DRNuria after DC Call your doctor for: Concerns you may have Follow-Up Follow up with: Dr. Hanson in 1 week. LOPEZ HANSON Jr, MD May 30, 2019 18:35
== END 2019-05-30 19:14 | disposition home or self-care (01) | DRG 833 ==
LOC: 3 NORTH 08:43
PROVIDERS: ADMIT Obstetrics & Gynecology; ATTEND Obstetrics & Gynecology
DX: O21.1 Hyperemesis gravidarum with metabolic disturbance (principal); O99.281 Endocrine, nutritional and metabolic diseases complicating pregnancy, first trimester; O25.11 Malnutrition in pregnancy, first trimester; Z3A.12 12 weeks gestation of pregnancy
CPT/HCPCS: 36415; 80048; 80053; 82150; 83690; 85007; 85025; J1200; J2270; J2405; J2765; J3230; J3410; J3480; J3490; J7030; J7120; Q0161; Q0162; Q0163; G0378